=== PATIENT | female | born 1955 | race Caucasian/White ===

== ENCOUNTER 2017-03-10 08:14 | Day surgery (SDC) | payer OTHER ==
[~2017-03-10] VITALS: Ht 165.1 cm; Wt 72.5 kg
[~2017-03-10 08:14] MED LIST: SYNTHROID75 MCG PO
[2017-03-10 08:58] VITALS: BP 126/83
[2017-03-10 13:05] VITALS: BP 138/61
[2017-03-10 14:15] VITALS: BP 136/81
== END 2017-03-10 14:40 | disposition home or self-care (01) ==
LOC: SDC 08:14
DX: N95.0 Postmenopausal bleeding (principal); N88.2 Stricture and stenosis of cervix uteri; E03.9 Hypothyroidism, unspecified; K21.9 Gastro-esophageal reflux disease without esophagitis; F41.9 Anxiety disorder, unspecified
CPT/HCPCS: J0690; J1100; J2250; J2405; J3010